=== PATIENT | female | born 1940 | race Caucasian/White ===

== ENCOUNTER → 2016-09-10 | Outpatient (CLI) | payer MEDICARE, BC ==
[~2016-09-10] MED LIST: ASPIRIN81 M1 PO; FISH OIL300 MG PO
--- NOTE | ~2016-09-10 | CR230 ---
[facility] A Service of [facility] & [facility] RADIOLOGY TEXT RESULTS PATIENT: SOUMYA GONZALEZ LOCATION: [facility] : 40 UNIT #: [id number] AGE: [address]: Shiva Moya MD SEX: F ORDER DR: [id number] [address] [address] [id number] O MR#: [id number] Acc #: [id number] NAME: SOUMYA GONZALEZ : 1940 SEX: F STUDY DATE/TIME: 09/10/2016 10:22 UNIT: [facility] ROOM: STUDY DESCRIPTION: CR Shoulder Min 2 View Rt Attending Physician: Shiva Moya M.D. Referring Physician: Shiva Moya M.D. Ordering Physician: Shiva Moya M.D. Primary Care Physician: Shiva Moya M.D. MEDICAL IMAGING REPORT This report is preliminary unless electronic signature is present. EXAM Right shoulder 3 views 09/10/2016 1022 hours. HISTORY Patient fell off stair stepper yesterday complaining of pain on top of shoulder. COMPARISON None. FINDINGS AP views in internal-external rotation and a scapula Y-view demonstrate an oblique fracture through the greater tuberosity which appears acute but nondisplaced. This may involve the rotator cuff insertion site. There is spurring at the acromioclavicular joint greater than glenohumeral joint. The ribs are intact. IMPRESSION There is an acute oblique nondisplaced fracture of the greater tuberosity only of the humerus. This likely involves the rotator cuff insertion site. The remainder of the shoulder is intact. STAT * RESULT Dictated by... Dianne Levi M.D. THIS IS AN ELECTRONICALLY VERIFIED REPORT Dianne Levi M.D. at 09/10/2016 12:14 PM PACO/bd [facility] A Service of [facility] & [facility] RADIOLOGY TEXT RESULTS PATIENT: SOUMYA GONZALEZ LOCATION: [facility] : 40 UNIT #: [id number] AGE: [address]: Shiva Moya MD SEX: F ORDER DR: TD: 09/10/2016 11:55 JOB #: [id number] MEDICAL IMAGING REPORT Page 1 of 1
== END | disposition home or self-care (01) ==
LOC: SRAD 09:37
DX: M25.511 Pain in right shoulder (principal); S42.254A Nondisplaced fracture of greater tuberosity of right humerus, initial encounter for closed fracture
CPT/HCPCS: 73030